=== PATIENT | female | born 1950 | race Caucasian/White ===

== ENCOUNTER 2017-01-15 08:07 | Day surgery (SDC) | payer OTHER ==
[~2017-01-15] VITALS: Ht 165.1 cm; Wt 55.8 kg
[~2017-01-15 08:07] MED LIST: ADULT MULTIVI200 MCG PO; AMBIEN10 MG PO; ATIVAN0.5 MG PO; Ambien PO; Ascorbic Acid,Ester- PO; Buspar PO; DAILY MULTIVIT1 EAC6 PO; DESYREL100 MG PO; DILAUDID2 MG PO; Ecotrin PO; FLECTOR 1.3%1 PATC1 TD; FLUOXETINE HCL40 MG PO; FOLTX TABLET1 EAC1 PO; FOLVITE1 M1 PO; Feosol PO; GABAPENTIN300 MG PO; INDERAL10 MG PO; KADIAN30 MG PO; LORAZEPAM0.5 MG PO; METHADONE10 MG PO; MORPHINE SULFAT15 MG PO; MS CONTIN,ORAMO30 M2 PO; MSIR15 MG PO; NABUMETONE500 MG PO; NAMENDA10 MG PO; NEURONTIN300 MG PO; Neurontin PO; OMEGA DHA92 MG PO; OXYCODONE HCL15 MG PO; PRILOSEC20 MG PO; PROZAC40 MG PO; PROzac PO; PriLOSEC PO; REGLAN5 MG PO; RELAFEN500 M1 PO; SENOKOT S,PE1 TABLET PO; THERAGRAN1 TABLET PO; TIZANIDINE HCL4 M1 PO; WELLBUTRIN XL150 MG PO; WELLBUTRIN XL300 MG PO; ZANAFLEX4 MG PO; ZOLPIDEM TARTRA10 MG PO
== END 2017-01-15 10:13 | disposition home or self-care (01) ==
LOC: PAIN 08:07 → SDC 08:30 → PAIN 10:13
DX: M47.816 Spondylosis without myelopathy or radiculopathy, lumbar region (principal); M54.5 Low back pain; G89.29 Other chronic pain; M79.1 Myalgia; M51.36 Other intervertebral disc degeneration, lumbar region; K21.9 Gastro-esophageal reflux disease without esophagitis; F41.8 Other specified anxiety disorders; B17.10 Acute hepatitis C without hepatic coma; M46.1 Sacroiliitis, not elsewhere classified; M96.1 Postlaminectomy syndrome, not elsewhere classified; G30.9 Alzheimer's disease, unspecified; F02.80 Dementia in other diseases classified elsewhere, unspecified severity, without behavioral disturbance, psychotic disturbance, mood disturbance, and anxiety; Z79.899 Other long term (current) drug therapy; F17.210 Nicotine dependence, cigarettes, uncomplicated; Z79.891 Long term (current) use of opiate analgesic
CPT/HCPCS: J1030; J1885; J2250; J3010; S0020

== ENCOUNTER 2017-01-24 09:19 | Day surgery (SDC) | payer OTHER ==
[~2017-01-24] VITALS: Ht 165.1 cm; Wt 55.8 kg
== END 2017-01-24 11:50 | disposition home or self-care (01) ==
LOC: PAIN 09:19 → SDC 10:00 → PAIN 11:50
PROC: 015B3ZZ Destruction of Lumbar Nerve, Percutaneous Approach (ICD-10-PCS; principal; 2017-01-24)
DX: M47.816 Spondylosis without myelopathy or radiculopathy, lumbar region (principal); F41.9 Anxiety disorder, unspecified; G89.29 Other chronic pain; M50.90 Cervical disc disorder, unspecified, unspecified cervical region; M51.36 Other intervertebral disc degeneration, lumbar region; M48.06 Spinal stenosis, lumbar region; M96.1 Postlaminectomy syndrome, not elsewhere classified; M47.812 Spondylosis without myelopathy or radiculopathy, cervical region; Z96.611 Presence of right artificial shoulder joint; Z96.612 Presence of left artificial shoulder joint
CPT/HCPCS: J1030; J2250; J3010; S0020

== ENCOUNTER 2017-02-11 12:22 | Day surgery (SDC) | payer OTHER ==
[~2017-02-11] VITALS: Ht 165.1 cm; Wt 55.8 kg
== END 2017-02-11 13:57 | disposition home or self-care (01) ==
LOC: PAIN 12:22 → SDC 13:00 → PAIN 13:00
DX: M47.22 Other spondylosis with radiculopathy, cervical region (principal); M54.2 Cervicalgia; G89.29 Other chronic pain; M96.1 Postlaminectomy syndrome, not elsewhere classified; M47.816 Spondylosis without myelopathy or radiculopathy, lumbar region; K21.9 Gastro-esophageal reflux disease without esophagitis; M51.36 Other intervertebral disc degeneration, lumbar region; Z87.891 Personal history of nicotine dependence
CPT/HCPCS: J1030; J2250; J3010; S0020

== ENCOUNTER 2017-05-13 10:54 | Day surgery (SDC) | payer OTHER ==
[~2017-05-13] VITALS: Ht 165.1 cm; Wt 53.5 kg
== END 2017-05-13 13:10 | disposition home or self-care (01) ==
LOC: PAIN 10:54 → SDC 11:30 → PAIN 13:10
DX: M47.22 Other spondylosis with radiculopathy, cervical region (principal); M50.11 Cervical disc disorder with radiculopathy, high cervical region; M54.2 Cervicalgia; G89.29 Other chronic pain; M96.1 Postlaminectomy syndrome, not elsewhere classified; M79.1 Myalgia; M47.816 Spondylosis without myelopathy or radiculopathy, lumbar region; M46.1 Sacroiliitis, not elsewhere classified; M48.061 Spinal stenosis, lumbar region without neurogenic claudication; Z79.891 Long term (current) use of opiate analgesic; K21.9 Gastro-esophageal reflux disease without esophagitis; I73.9 Peripheral vascular disease, unspecified; F17.210 Nicotine dependence, cigarettes, uncomplicated
CPT/HCPCS: J1030; J1885; J2250; J3010; S0020

== ENCOUNTER 2018-03-17 12:09 | Day surgery (SDC) | payer OTHER ==
[~2018-03-17] VITALS: Ht 165.1 cm; Wt 52.2 kg
== END 2018-03-17 14:08 | disposition home or self-care (01) ==
LOC: PAIN 12:09 → SDC 12:45 → PAIN 14:08
DX: M47.816 Spondylosis without myelopathy or radiculopathy, lumbar region (principal); M51.36 Other intervertebral disc degeneration, lumbar region; M96.1 Postlaminectomy syndrome, not elsewhere classified; M47.812 Spondylosis without myelopathy or radiculopathy, cervical region; M17.12 Unilateral primary osteoarthritis, left knee; M79.1 Myalgia; M46.1 Sacroiliitis, not elsewhere classified; G89.29 Other chronic pain; K21.9 Gastro-esophageal reflux disease without esophagitis; F42.9 Obsessive-compulsive disorder, unspecified; Z88.8 Allergy status to other drugs, medicaments and biological substances; Z91.040 Latex allergy status; F17.200 Nicotine dependence, unspecified, uncomplicated; Z79.891 Long term (current) use of opiate analgesic
CPT/HCPCS: J1030; J2250; J3010; S0020

== ENCOUNTER 2018-03-24 09:37 | Day surgery (SDC) | payer OTHER ==
[~2018-03-24] VITALS: Ht 165.1 cm; Wt 52.2 kg
== END 2018-03-24 11:27 | disposition home or self-care (01) ==
LOC: PAIN 09:37
DX: M47.816 Spondylosis without myelopathy or radiculopathy, lumbar region (principal); Z96.1 Presence of intraocular lens; M17.12 Unilateral primary osteoarthritis, left knee; G89.29 Other chronic pain; Z79.899 Other long term (current) drug therapy; F17.200 Nicotine dependence, unspecified, uncomplicated
CPT/HCPCS: J1030; J2250; J3010; S0020